=== PATIENT | male | born 1975 | race Caucasian/White ===

== ENCOUNTER 2017-10-22 21:16 | Emergency (ER) | payer MEDICARE ==
[~2017-10-22] VITALS: Ht 177.8 cm; Wt 113.6 kg
[2017-10-22 21:25] VITALS: Ht 177.8 cm; Wt 113.6 kg
[2017-10-22] MEDS ORDERED: MOBIC7.5 MG PO (21:26)
[2017-10-22] MEDS ORDERED: REXULTI1 MG PO (21:26)
[2017-10-22] MEDS ORDERED: NORCO 7.5/325 T1 TA1 PO (21:26)
[2017-10-22] MEDS ORDERED: CYCLOBENZAPRINE10 MG PO (21:26)
[2017-10-22] MEDS ORDERED: COZAAR25 MG (21:27)
[2017-10-22] MEDS ORDERED: FENOGLIDE40 MG (21:27)
[2017-10-22 22:08] LABS: BASOPHILS 0.3 % (0-2); EOSINOPHILS 5.6 % (0-7); HEMATOCRIT 36.2 % (42.0-54.0); HEMOGLOBIN 12.8 g/dL (13.5-17.5); IMMATURE GRANULOCYTES 0.4 % (0-5); LYMPHOCYTES 25.6 % (15-50); MCH 30.4 pg (26.0-34.0); MCHC 35.4 g/dL (31.0-37.0); MEAN PLATELET VOLUME 9.8 fL (7.4-10.4); MONOCYTES 7.8 % (2-11); NEUTROPHILS 60.3 % (40-80); RBC 4.21 10x6/uL (4.20-6.10); RDW 12.5 % (11.5-14.5); WBC 10.9 10x3/uL (4.8-10.8)
[2017-10-22 22:11] LABS: PLATELET COUNT 324 10x3/uL (130-400)
[2017-10-22 22:30] LABS: ALBUMIN 2.8 g/dL (3.4-5.0); ANION GAP 8.5 mmol/L (8-16); BILIRUBIN - TOTAL 0.64 mg/dL (0.2-1.3); CALCIUM 8.1 mg/dL (8.5-10.1); CARBON DIOXIDE 26.9 mmol/L (21.0-32.0); CREATININE - SERUM 1.2 mg/dL (0.6-1.3); POTASSIUM - SERUM 3.4 mmol/L (3.5-5.1); PROTEIN - SERUM 6.8 g/dL (6.4-8.2)
[2017-10-22 23:59] VITALS: BP 145/89
== END 2017-10-23 00:01 | disposition left against medical advice (07) ==
LOC: D.ER 21:16
PROVIDERS: Family Medicine
DX: M54.5 Low back pain (principal)